=== PATIENT | female | born 1975 | race African-American/Black ===

== ENCOUNTER → 2023-04-25 | Outpatient (CLI) | payer OTHER | LOC: MC.RAD 14:00 | DX: N63.11 Unspecified lump in the right breast, upper outer quadrant (principal) ==

== ENCOUNTER → 2023-05-03 | Outpatient (CLI) | payer OTHER | LOC: MC.RAD 09:55 | DX: N60.01 Solitary cyst of right breast (principal) ==

== ENCOUNTER → 2023-10-25 | Outpatient (CLI) | payer OTHER | LOC: MC.RAD 10:40 | DX: Z12.31 Encounter for screening mammogram for malignant neoplasm of breast (principal); N63.11 Unspecified lump in the right breast, upper outer quadrant ==